=== PATIENT | male | born 1960 | race Caucasian/White ===

== ENCOUNTER 2019-02-12 19:40 | Inpatient (IN) | payer OTHER ==
--- NOTE | 2019-02-12 20:23 | ED ---
Altered Mental Status HPI - General Chief Complaint: Altered Mental Status Stated Complaint: Altered LOC Time Seen by Provider: 02/12/19 20:07 Source: patient, EMS, RN notes reviewed, old records reviewed Mode of arrival: EMS Limitations: no limitations - History of Present Illness Initial Comments: This is a 59-year-old male the ER for evaluation. states he feels well and is in no distress. Patient's brought the ED by PD as he was found without knowing where he was or how he got here. Patient was on his way from his family's house to the [facility] PD found in a playground unsure where he was. Patient's brought to ER for evaluation patient is awake alert currently dyspneic with patient's is gives him both history concern for his patient's cirrhosis and elevated ammonia MD Complaint: altered mental status, confusion -: unknown Severity: mild Consistency of Symptoms: unknown Context: history of similar presentation Associated Symptoms: weakness Treatments Prior to Arrival: glucose - Related Data Home Medications Medication Instructions Recorded Confirmed Calcium Carbonate/Vitamin D3 1 tab PO TID 02/12/19 02/12/19 [Calcium 500-Vit D3 200 Tablet] Cetirizine HCl [Zyrtec] 10 mg PO DAILY 02/12/19 02/12/19 Cholecalciferol [Vitamin D3 (25 1,000 unit PO DAILY 02/12/19 02/12/19 Mcg = 1000 Iu)] Fluticasone Nasal [place] [Flonase 2 spr EA NOSTRIL DAILY 02/12/19 02/12/19 Nasal [place]] Furosemide [Lasix] 80 mg PO DAILY 02/12/19 02/12/19 Magnesium Oxide 400 mg PO DAILY 02/12/19 02/12/19 Multivitamins, Thera [Multivitamin 1 tab PO DAILY 02/12/19 02/12/19 (formulary)] Omeprazole 20 mg PO DAILY 02/12/19 02/12/19 Primidone [Mysoline] 50 mg PO BID 02/12/19 02/12/19 Propranolol HCl 40 mg PO DAILY 02/12/19 02/12/19 Rifaximin [Xifaxan] 550 mg PO BID 02/12/19 02/12/19 SUMAtriptan SUCCINATE [Imitrex] 50 mg PO DAILY PRN 02/12/19 02/12/19 Saliva Stimulant Agents Comb.3 1 spray MUCOUS MEM DAILY 02/12/19 02/12/19 [Biotene Moisturizing Mouth] Spironolactone 50 mg PO DAILY 02/12/19 02/12/19 Tamsulosin HCl [Flomax] 0.4 mg PO HS 02/12/19 02/12/19 Allergies Allergy/AdvReac Type Severity Reaction Status Date / Time No Known Allergies Allergy Verified 02/12/19 19:58 Review of Systems ROS Statement: Those systems with pertinent positive or pertinent negative responses have been documented in the HPI. ROS Other: All systems not noted in ROS Statement are negative. Past Medical History Additional Past Medical History / Comment(s): chirrosis of the liver, hepatic encephalopathy, CIPD neuropathy IV treatments for, essential tremors, BPH Past Surgical History: No Surgical Hx Reported Past Psychological History: No Psychological Hx Reported Smoking Status: Never smoker Past Alcohol Use History: None Reported Past Drug Use History: None Reported General Exam Limitations: no limitations General appearance: alert, in no apparent distress Head exam: Present: atraumatic, normocephalic, normal inspection Eye exam: Present: normal appearance, PERRL, EOMI. Absent: scleral icterus, conjunctival injection, periorbital swelling ENT exam: Present: normal exam, mucous membranes dry Neck exam: Present: normal inspection. Absent: tenderness, meningismus, lymphadenopathy Respiratory exam: Present: normal lung sounds bilaterally. Absent: respiratory distress, wheezes, rales, rhonchi, stridor Cardiovascular Exam: Present: regular rate, normal rhythm, normal heart sounds. Absent: systolic murmur, diastolic murmur, rubs, gallop, clicks GI/Abdominal exam: Present: soft, normal bowel sounds. Absent: distended, tenderness, guarding, rebound, rigid Extremities exam: Present: normal inspection, full ROM, normal capillary refill. Absent: tenderness, pedal edema, joint swelling, calf tenderness Back exam: Present: normal inspection Neurological exam: Present: alert, oriented X3, CN II-XII intact Psychiatric exam: Present: normal affect, normal mood Skin exam: Present: warm, dry, intact, normal color. Absent: rash Course Vital Signs 02/12/19 19:49 Temperature 98.0 F Pulse Rate 58 L Respiratory 16 Rate Blood Pressure 123/61 O2 Sat by Pulse 98 Oximetry - Reevaluation(s) Reevaluation #1: 02/12/19 20:33 Medical records reviewed showing medical history The patient's who states patient does have cirrhosis and occasionally beco mes elevated ammonia and confused Reevaluation #2: 02/12/19 21:54 Spoke with family and they are aware of patient's admission - Consultations Consultation #1: Spoke with Dr. Schuler will admit for sounds Medical Decision Making - Medical Decision Making 59 male the ER with severe panic encephalopathy. Significant altered mental status, will admit for lactulose treatment and monitor mental status - Lab Data Result diagrams: 02/12/19 20:18 02/12/19 20:18 Lab Results 02/12/19 02/12/19 02/12/19 Range/Units 20:18 20:18 20:18 WBC 3.9 (3.8-10.6) k/uL RBC 3.12 L (4.30-5.90) m/uL Hgb 11.3 L (13.0-17.5) gm/dL Hct 33.8 L (39.0-53.0) % MCV 108.2 H (80.0-100.0) fL MCH 36.2 H (25.0-35.0) pg MCHC 33.5 (31.0-37.0) g/dL RDW 14.7 (11.5-15.5) % Macrocytosis Marked A Sodium 137 (137-145) mmol/L Potassium 4.2 (3.5-5.1) mmol/L Chloride 103 (98-107) mmol/L Carbon Dioxide 29 (22-30) mmol/L Anion Gap 5 mmol/L BUN 28 H (9-20) mg/dL Creatinine 0.87 (0.66-1.25) mg/dL Est GFR (CKD-EPI)AfAm >90 (>60 ml/min/1.73 sqM) Est GFR (CKD-EPI)NonAf >90 (>60 ml/min/1.73 sqM) Glucose 169 H (74-99) mg/dL Calcium 8.5 (8.4-10.2) mg/dL Phosphorus 3.2 (2.5-4.5) mg/dL Magnesium 1.9 (1.6-2.3) mg/dL Total Bilirubin 2.3 H (0.2-1.3) mg/dL AST 34 (17-59) U/L ALT 32 (21-72) U/L Alkaline Phosphatase 115 (38-126) U/L Ammonia 134 H (<30) umol/L Total Protein 6.0 L (6.3-8.2) g/dL Albumin 2.8 L (3.5-5.0) g/dL - EKG Data -: EKG Interpreted by Me (EKG shows a rhythm of 56, QRS 70, QTc 451) Disposition Clinical Impression: Altered mental status, Hepatic encephalopathy Disposition: ADMITTED IP TO THIS HOSP Condition: Fair Is patient prescribed a controlled substance at d/c from ED?: No Referrals: Nonstaff,Physician [Primary Care Provider] - 1-2 days
[2019-02-12] MEDS ORDERED: SODIUM CHLORIDE 0.9% 1,000 ML IV ONE ×2 (20:28→21:52)
[2019-02-12 21:04] LABS: Basophils % (A) 1 %; Eosinophils # (A) 0.2 k/uL (0-0.7); Eosinophils % (A) 4 %; HCT 33.8 % (39.0-53.0); HGB 11.3 gm/dL (13.0-17.5); Lymphocytes # (A) 0.8 k/uL (1.0-4.8); Lymphocytes % (A) 20 %; MCH 36.2 pg (25.0-35.0); MCHC 33.5 g/dL (31.0-37.0); MCV 108.2 fL (80.0-100.0); Macrocytosis Marked; Mean Platelet Volume 9.4; Monocytes # (A) 0.3 k/uL (0-1.0); Monocytes % (A) 7 %; Neutrophils # (A) 2.6 k/uL (1.3-7.7); Neutrophils % (A) 66 %; RBC 3.12 m/uL (4.30-5.90); RDW 14.7 % (11.5-15.5); WBC 3.9 k/uL (3.8-10.6)
[2019-02-12 21:13] LABS: ALT 32 U/L (21-72); AST 34 U/L (17-59); African American GFR (CKD) >90 (>60 ml/min/1.73 sqM); Albumin 2.8 g/dL (3.5-5.0); Alkaline Phosphatase 115 U/L (38-126); Anion Gap 5 mmol/L; Blood Urea Nitrogen 28 mg/dL (9-20); Calcium 8.5 mg/dL (8.4-10.2); Carbon Dioxide 29 mmol/L (22-30); Chloride 103 mmol/L (98-107); Glucose 169 mg/dL (74-99); Magnesium 1.9 mg/dL (1.6-2.3); Phosphorus 3.2 mg/dL (2.5-4.5); Potassium 4.2 mmol/L (3.5-5.1); Sodium 137 mmol/L (137-145); Total Bilirubin 2.3 mg/dL (0.2-1.3)
[2019-02-12] MEDS ORDERED: LACTULOSE 20 GM/30 ML CUP PO ONE (22:00)
[2019-02-12 22:14] LABS: Platelet Count 33 k/uL (150-450)
[2019-02-13] MEDS ORDERED: traZODone HCL 100 MG TAB ONE (03:35)
[2019-02-13] MEDS ORDERED: LACTULOSE 20 GM/30 ML CUP ONE ×2 (03:35)
--- NOTE | 2019-02-13 07:58 | P.HPIM ---
History of Present Illness H&P Date: 02/12/19 Chief Complaint: patient was found confused side of the road This 59-year-old male with history of CIDP and liver cirrhosis Patient was found by the police on the side of the road trying to start his car which is not running patient reports that he ran out of gas while trying to go to his doctor. Last thing he remembers is leaving in the morning to go to his doctor appointment the only problem is he lives in [place], and he has no idea how he got here in [place] he laughs when he tells the story as it had happened before to him where he finds himself in odd places with no recollection on how he got there. Police contacted his who reported him missing yesterday as he left home yesterday morning February 11, and wasnt found by the police until late in the evening of February 12 it seems like he drove all the way from [place] to [place]. Patient denies any physical complaints at this time denies any headache, focal neurologic deficits, chest pain or trouble breathing, abdominal pain nausea vomiting, changes in his urinary habits or bowel habits, or GI bleeding. In the ED he was found to have elevated ammonia of 1:30 he was given lactulose, and was admitted for further evaluation and care Review of Systems Pertinent positives as noted in HPI. 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 , essential tremors, BPH Past Surgical History: No Surgical Hx Reported Past Psychological History: No Psychological Hx Reported Smoking Status: Never smoker Past Alcohol Use History: None Reported Past Drug Use History: None Reported - Past Family History family Family Medical History: No Reported History Medications and Allergies Home Medications Medication Instructions Recorded Confirmed Type Calcium Carbonate/Vitamin D3 1 tab PO TID 02/12/19 02/12/19 History [Calcium 500-Vit D3 200 Tablet] Cetirizine HCl [Zyrtec] 10 mg PO DAILY 02/12/19 02/12/19 History Cholecalciferol [Vitamin D3 (25 1,000 unit PO DAILY 02/12/19 02/12/19 History Mcg = 1000 Iu)] Fluticasone Nasal [place] [Flonase 2 spr EA NOSTRIL DAILY 02/12/19 02/12/19 History Nasal [place]] Furosemide [Lasix] 80 mg PO DAILY 02/12/19 02/12/19 History Magnesium Oxide 400 mg PO DAILY 02/12/19 02/12/19 History Multivitamins, Thera [Multivitamin 1 tab PO DAILY 02/12/19 02/12/19 History (formulary)] Omeprazole 20 mg PO DAILY 02/12/19 02/12/19 History Primidone [Mysoline] 50 mg PO BID 02/12/19 02/12/19 History Propranolol HCl 40 mg PO DAILY 02/12/19 02/12/19 History Rifaximin [Xifaxan] 550 mg PO BID 02/12/19 02/12/19 History SUMAtriptan SUCCINATE [Imitrex] 50 mg PO DAILY PRN 02/12/19 02/12/19 History Saliva Stimulant Agents Comb.3 1 spray MUCOUS MEM DAILY 02/12/19 02/12/19 History [Biotene Moisturizing Mouth] Spironolactone 50 mg PO DAILY 02/12/19 02/12/19 History Tamsulosin HCl [Flomax] 0.4 mg PO HS 02/12/19 02/12/19 History Allergies Allergy/AdvReac Type Severity Reaction Status Date / Time No Known Allergies Allergy Verified 02/12/19 19:58 Physical Exam Vitals: Vital Signs Temp Pulse Pulse Resp BP BP Pulse Ox 02/12/19 22:59 98.0 F 60 18 123/70 97 02/12/19 22:27 89 16 120/74 97 02/12/19 19:49 98.0 F 58 L 16 123/61 98 Intake and Output 02/12/19 02/13/19 02/13/19 22:59 06:59 14:59 Other: Weight 77.111 kg Constitutional: No acute distress, conversant, pleasant, patient has positive asterixis Eyes: Hint of sclerae jaundice, moist conjunctiva, no lid-lag Pupils equal round reactive to light ENMT: NC/AT Oropharynx clear, no erythema, exudates Neck: Supple, FROM, no masses, or JVD No carotid bruits No thyromegaly Lungs: Clear to auscultation Clear to percussion Normal respiratory effort, no accessory muscle use Cardiovascular: Heart regular in rate and rhythm, No murmurs, gallops, or rubs No peripheral edema Abdominal: Soft Nontender, no guarding, rebound or rigidity Abdomen moving with respiration Normoactive bowel sounds No hepatomegaly, No splenomegaly No palpable mass No abdominal wall hernia noted Skin: Patient has a Mediport right anterior chest Normal temperature, tone, texture, turgor No induration No subcutaneous nodules No rash, lesions No ulcers Extremities: Patient has AV fistula over the distal left forearm No digital cyanosis No clubbing Pedal pulses intact and symmetrical Radial pulses intact and symmetrical No calf tenderness Psychiatric: Alert and oriented to person, place and time Appropriate affect fair judgment Neuro Muscles Strength 5/5 in all 4 extremities Sensation to light touch grossly present throughout Cranial nerves II-XII grossly intact No focal sensory deficits Lymphatics: no palpable cervical or supraclavicular , or inguinal lymph nodes Results CBC & Chem 7: 02/12/19 20:18 02/12/19 20:18 Labs: Abnormal Lab Results - Last 24 Hours (Table) 02/12/19 02/12/19 02/12/19 Range/Units 20:18 20:18 20:18 RBC 3.12 L (4.30-5.90) m/uL Hgb 11.3 L (13.0-17.5) gm/dL Hct 33.8 L (39.0-53.0) % MCV 108.2 H (80.0-100.0) fL MCH 36.2 H (25.0-35.0) pg Plt Count 33 L (150-450) k/uL Lymphocytes # 0.8 L (1.0-4.8) k/uL Macrocytosis Marked A BUN 28 H (9-20) mg/dL Glucose 169 H (74-99) mg/dL Total Bilirubin 2.3 H (0.2-1.3) mg/dL Ammonia 134 H (<30) umol/L Total Protein 6.0 L (6.3-8.2) g/dL Albumin 2.8 L (3.5-5.0) g/dL Assessment and Plan Assessment: 59-year-old male with history of liver cirrhosis, CIDP, BPH, hypertension Patient admitted to the hospital for acute metabolic encephalopathy found to have elevated ammonia. Admitted as an inpatient with anticipated length of stay more than 2 midnights. Patient has gone missing since yesterday from home where he lives in [place], police [place] [address] [place] when patient asked he has no clue about how he got here however he reports that he has in the past found himself and on places multiple times without having any recollection on how he got there Plan: Acute hepatic encephalopathy with hyperammonemia secondary to liver cirrhosis Lactulose every 2 hours until patient passes a bowel movement then will be titrated to target 3-5 bowel movements Neurochecks Fall precautions resume home meds rifaximine , and propranolol ,aldactone and lasix Chronic conditions Chronic inflammatory demyelinating polyneuropathy, continue outpatient follow-up with plasmapheresis monthly Hypertension currently controlled resume home meds Hyperlipidemia BPH DVT prophylaxis mechanical due to thrombocytopenia thrombocytopenia, 2/2 chronic liver cirhosis anemia with macrocytosis Surrogate decision-maker: Patient CODE STATUS full code Discussed with: Patient, ER, RN Anticipated length of stay more than [address]: Pending clinical course A total of 60 minutes was spent on the care of this complex patient more than 50% of the time was spent in counseling and care coordination.
[2019-02-13] MEDS ORDERED: DRY MOUTH SPRAY 44.3 SPRAY/44.3 ML SPRAY MUCOUS MEM PRN (08:00)
[2019-02-13] MEDS: FLUTICASONE 50MCG/SPRAY NASAL 16GM EA NOSTRIL SCH (08:58)
[2019-02-13] MEDS: PROPRANOLOL 40 MG TAB PO SCH (08:59)
[2019-02-13] MEDS: LORATADINE 10 MG TAB PO SCH (08:59)
[2019-02-13] MEDS: SPIRONOLACTONE 25 MG TAB PO SCH (08:59)
[2019-02-13] MEDS: RIFAXIMIN 550 MG TABLET PO SCH ×2 (08:59→21:49)
[2019-02-13] MEDS: FUROSEMIDE 80 MG TAB PO SCH (08:59)
[2019-02-13] MEDS: MAGNESIUM OXIDE 400 MG TAB PO SCH (08:59)
[2019-02-13] MEDS ORDERED: ENOXAPARIN 40 MG/0.4 ML SYRINGE SQ SCH (09:00)
[2019-02-13] MEDS: LACTULOSE 20 GM/30 ML CUP PO SCH ×2 (09:03→21:48)
[2019-02-13 12:51] LABS: Basophils % (A) 0 %; Eosinophils # (A) 0.1 k/uL (0-0.7); Eosinophils % (A) 4 %; HCT 32.9 % (39.0-53.0); Lymphocytes # (A) 0.5 k/uL (1.0-4.8); Lymphocytes % (A) 17 %; MCH 37.4 pg (25.0-35.0); MCHC 33.5 g/dL (31.0-37.0); MCV 111.5 fL (80.0-100.0); Macrocytosis Marked; Mean Platelet Volume 10.1; Monocytes # (A) 0.3 k/uL (0-1.0); Monocytes % (A) 8 %; Neutrophils # (A) 2.2 k/uL (1.3-7.7); Neutrophils % (A) 68 %; RBC 2.95 m/uL (4.30-5.90); RDW 14.7 % (11.5-15.5); WBC 3.2 k/uL (3.8-10.6)
--- NOTE | 2019-02-13 12:51 | P.PN ---
Subjective Progress Note Date: 02/13/19 Principal diagnosis: Hepatic encephalopathy Patient was seen and examined. No acute events overnight. Patient reports that he was confused, was attempting to drive to his [facility] appointment when he continued driving from [place] to [place]. Patient states that his is on her way to come get him. He denies any chest pain, shortness of breath or palpitations. No nausea or vomiting. No fever or chills. Had multiple bowel movements from the lactulose. Objective - Vital Signs Vital signs: Vital Signs Temp 98.6 F 02/13/19 07:00 Pulse 65 02/13/19 07:00 Resp 16 02/13/19 07:00 BP 113/64 02/13/19 07:00 Pulse Ox 98 02/13/19 07:00 Intake & Output 02/12/19 02/13/19 02/13/19 18:59 06:59 18:59 Intake Total 650 Balance 650 Weight 77.111 kg Intake: Oral 650 Other: Voiding Method Toilet # Voids 1 # Bowel Movements 1 2 - Exam General: [non toxic], [no distress], [appears at stated age] Derm: [warm], [dry] Head: [atraumatic], [normocephalic], [symmetric] Eyes: [EOMI], [no lid lag], [anicteric sclera] Mouth: [no lip lesion], [mucus membranes moist] Cardiovascular: [S1S2 reg], [no murmur], [positive posterior tibial pulse bilateral], [right-sided chest port] Lungs: [CTA bilateral], [no rhonchi, no rales] , [no accessory muscle use] Abdominal: [soft, slightly distended], [ nontender to palpation], [no guarding], [no appreciable organomegaly] Ext: [no gross muscle atrophy], [no edema], [no contractures], [ asterixis ], [chronic venous stasis changes bilateral lower extremities] Neuro: [no focal neuro deficits] Psych: [Able to remember his home address, current president, today's date] - Labs CBC & Chem 7: 02/12/19 20:18 02/12/19 20:18 Labs: Abnormal Lab Results - Last 24 Hours (Table) 10/15/19 10/15/19 10/15/19 Range/Units 20:18 20:18 20:18 RBC 3.12 L (4.30-5.90) m/uL Hgb 11.3 L (13.0-17.5) gm/dL Hct 33.8 L (39.0-53.0) % MCV 108.2 H (80.0-100.0) fL MCH 36.2 H (25.0-35.0) pg Plt Count 33 L (150-450) k/uL Lymphocytes # 0.8 L (1.0-4.8) k/uL Macrocytosis Marked A BUN 28 H (9-20) mg/dL Glucose 169 H (74-99) mg/dL Total Bilirubin 2.3 H (0.2-1.3) mg/dL Ammonia 134 H (<30) umol/L Total Protein 6.0 L (6.3-8.2) g/dL Albumin 2.8 L (3.5-5.0) g/dL Assessment and Plan Assessment: Assessment and Plan Acute hepatic encephalopathy with hyperammonemia secondary to liver cirrhosis Macrocytic anemia Thrombocytopenia Elevated BUN Hyperglycemia Chronic conditions: CIPD on monthly plasmapheresis, BPH Ammonia 134. States cirrhosis was from untreated hep C. Plans: Continue lactulose 30 g by mouth twice a day. Continue propranolol. Continue rifaximin. Fall precautions. Follow repeat ammonia level around 12 PM. Follow GI recommendations. Hemoglobin 11.3 with MCV 108.2. Likely due to cirrhosis. Plans: Follow B12 and folic acid. Daily CBC. Platelet count 33. Likely due to cirrhosis. Plans: Avoid heparin products. No acute signs of bleeding. Daily CBC. BUN 28, creatinine within normal limits. Likely due to dehydration. Plans: Encourage hydration by mouth. Repeat BMP in the morning. Blood glucose 169 without history of diabetes. Plans: Regular Accu-Cheks. Follow A1c. [Patient admitted for hepatic encephalopathy. Repeat ammonia level pending. Patient mentation is improving. We'll need to discuss further with family. Likely DC in 1-2 days.]
[2019-02-13 12:56] LABS: ALT 35 U/L (21-72); AST 37 U/L (17-59); African American GFR (CKD) >90 (>60 ml/min/1.73 sqM); Albumin 2.6 g/dL (3.5-5.0); Alkaline Phosphatase 112 U/L (38-126); Anion Gap 6 mmol/L; Blood Urea Nitrogen 22 mg/dL (9-20); Calcium 8.2 mg/dL (8.4-10.2); Carbon Dioxide 25 mmol/L (22-30); Chloride 108 mmol/L (98-107); Glucose 103 mg/dL (74-99); Magnesium 1.9 mg/dL (1.6-2.3); Potassium 4.5 mmol/L (3.5-5.1); Sodium 139 mmol/L (137-145); Total Bilirubin 1.7 mg/dL (0.2-1.3); Total Protein 5.6 g/dL (6.3-8.2)
[2019-02-13 13:00] LABS: Platelet Count 26 k/uL (150-450)
[2019-02-13] MEDS: PANTOPRAZOLE 40 MG TABLET PO SCH (13:39)
--- NOTE | 2019-02-13 15:28 | XR ---
EXAMINATION TYPE: XR chest 1V portable DATE OF EXAM: 02/13/2019 COMPARISON: None INDICATION: Chest port placement TECHNIQUE: Single frontal view of the chest is obtained. FINDINGS: The heart size is normal. The pulmonary vasculature is normal. The lungs are clear. There is elevation of the right diaphragm. Port is present on the right with the tip in the right atr ium. No pneumothorax is evident. IMPRESSION: 1. No acute pulmonary process.
[2019-02-13 17:01] LABS: Glucose,Whole Blood 133 mg/dL (75-99)
--- NOTE | 2019-02-13 18:41 | CONS ---
CONSULTATION DATE OF SERVICE: February 13, 2019. REQUESTING PHYSICIAN: Dr. Jones. REASON FOR CONSULTATION: Hepatic encephalopathy. HISTORY OF PRESENT ILLNESS: The patient is a 59-year-old pleasant white male with known history of liver cirrhosis diagnosed 10 years ago. He was also diagnosed with chronic hepatitis C infection that he has acquired from plasma transfusions in the past. He lives in [place] and apparently he became somewhat confused and continued [place] drive [place] [address], and ended up in the [place]. Apparently, he was seen by the police as he was trying to start his car as he ran out of gas and he was subsequently brought to the emergency room because of severe confusion. He was noted to have elevated ammonia level at the time of admission the hospital. The patient is doing much better now. His confusion has completely resolved. He states that he has periodic episodes of hepatic encephalopathy that lasts for 3-4 hours and usually subsides. He has been maintained on oral lactulose 30 mL twice daily and usually has 3-4 bowel movements daily. He also has been maintained on Xifaxan 1 tablet b.i.d. His liver disease has been fairly well compensated. He also has a history of CIDP. He is on monthly IVIG infusions. Prior to that, he was on plasmapheresis on a frequent basis. PAST MEDICAL HISTORY: 1. Significant for cirrhosis of the liver related to chronic hepatitis C infection status post antiviral therapy about 3-4 years ago and it worked and he has compensated liver disease. 2. History of hepatic encephalopathy with periodic episodes requiring hospitalization. 3. CIPD on IVIG infusions. PAST SURGICAL HISTORY: Fistula in the left upper arm. MEDICATIONS: At home include Prilosec, Mysoline, Propanol, Xifaxan, Imitrex, spironolactone, Flomax, omeprazole, Lasix, magnesium oxide, Flonase, vitamin D3, Zyrtec, and calcium carbonate. SOCIAL HISTORY: No smoking. No alcohol use. FAMILY HISTORY: Unremarkable. REVIEW OF SYSTEMS: Cardiopulmonary: Denies any chest pain, shortness of breath. Genitourinary: No dysuria or hematuria. Musculoskeletal unremarkable. Skin unremarkable. Endocrine unremarkable. Psychiatric unremarkable. Neurology unremarkable. ENT/vision unremarkable. CONSTITUTIONAL: No recent weight loss. No fever, chills, night sweats. PHYSICAL EXAMINATION: He appears comfortable. No apparent distress. VITAL SIGNS: Stable. Blood pressure 123/70, pulse rate 60, temperature 97.7. HEENT examination unremarkable. Conjunctivae pink. Sclerae anicteric. Oral cavity no lesions. The chest was clear to auscultation. HEART: Regular rate and rhythm. ABDOMEN: Soft. Bowel sounds are positive. No organomegaly. EXTREMITIES: No pedal edema. Skin no rashes. NEUROLOGIC: Alert and oriented x3. No focal deficits. LABS: From yesterday: WBC 3.9, hemoglobin 11.3, platelets 33,000. Today, WBC 3.2, hemoglobin 11, and platelets 26,000. BUN and creatinine are within normal limits. AST and ALT 34 and 32 respectively. T bilirubin 2.3 and alkaline phosphatase 134. Ammonia level was 134 yesterday, it is 107 today. IMPRESSION: 1. Hepatic encephalopathy with elevated ammonia level in this patient who has known liver cirrhosis diagnosed 10 years ago, presently on oral lactulose as well as oral Xifaxan and the ammonia levels are gradually improving. His mentation has completely normalized. 2. History of liver cirrhosis diagnosed 10 years ago. This was related to chronic hepatitis C infection that he has had plasma transfusions in the past. He was treated with oral antibiotic therapy in [place] about 3-4 years ago. 3. Mild elevation of bilirubin at 2.3, but normal serum transaminases. 4. History of CIDP on IVIG every 4 weeks. Prior to that he received plasmapheresis every 3 weeks. RECOMMENDATIONS: 1. Continue with lactulose and Xifaxan. 2. Try to so that he has 3-4 soft bowel movements daily. 3. Repeat ammonia levels in the morning. 4. If the ammonia levels are within normal limits, he can be discharged home. Thank you for this consultation. MMODL / IJN: [id number] /
[2019-02-13] MEDS ORDERED: traZODone HCL 100 MG TAB PO PRN (19:16)
[2019-02-13 20:40] LABS: Glucose,Whole Blood 123 mg/dL (75-99)
[2019-02-13] MEDS ORDERED: TAMSULOSIN 0.4 MG CAP.ER.24H PO SCH (21:00)
[2019-02-14 07:58] VITALS: BP 117/74; PULSE 65; RESP 16; TEMP 98.1
[2019-02-14] MEDS: SPIRONOLACTONE 25 MG TAB PO SCH (08:26)
[2019-02-14] MEDS: LACTULOSE 20 GM/30 ML CUP PO SCH (08:26)
[2019-02-14] MEDS: FLUTICASONE 50MCG/SPRAY NASAL 16GM EA NOSTRIL SCH (08:26)
[2019-02-14] MEDS: RIFAXIMIN 550 MG TABLET PO SCH (08:26)
[2019-02-14] MEDS: PROPRANOLOL 40 MG TAB PO SCH (08:26)
[2019-02-14] MEDS: PANTOPRAZOLE 40 MG TABLET PO SCH (08:26)
[2019-02-14] MEDS: FUROSEMIDE 80 MG TAB PO SCH (08:26)
[2019-02-14] MEDS: MAGNESIUM OXIDE 400 MG TAB PO SCH (08:26)
[2019-02-14] MEDS: LORATADINE 10 MG TAB PO SCH (08:26)
[2019-02-14 08:27] LABS: HCT 33.8 % (39.0-53.0); HGB 11.1 gm/dL (13.0-17.5); MCH 37.2 pg (25.0-35.0); MCHC 32.8 g/dL (31.0-37.0); MCV 113.4 fL (80.0-100.0); Macrocytosis Marked; Mean Platelet Volume 11.3; RBC 2.98 m/uL (4.30-5.90); RDW 14.9 % (11.5-15.5); WBC 3.5 k/uL (3.8-10.6)
[2019-02-14 08:30] LABS: Platelet Count 26 k/uL (150-450)
[2019-02-14 08:37] LABS: ALT 37 U/L (21-72); AST 41 U/L (17-59); African American GFR (CKD) >90 (>60 ml/min/1.73 sqM); Albumin 2.7 g/dL (3.5-5.0); Alkaline Phosphatase 116 U/L (38-126); Anion Gap 8 mmol/L; Blood Urea Nitrogen 23 mg/dL (9-20); Calcium 7.8 mg/dL (8.4-10.2); Carbon Dioxide 22 mmol/L (22-30); Chloride 109 mmol/L (98-107); Glucose 170 mg/dL (74-99); Potassium 4.5 mmol/L (3.5-5.1); Sodium 139 mmol/L (137-145); Total Bilirubin 2.4 mg/dL (0.2-1.3); Total Protein 5.8 g/dL (6.3-8.2)
--- NOTE | 2019-02-14 10:45 | P.PN ---
Subjective Progress Note Date: 02/14/19 Principal diagnosis: Hepatic encephalopathy Patient was seen and examined. No acute events overnight. is at bedside states that he is still confused but comfortable taking him home. He denies any chest pain, shortness of breath or palpitations. No nausea or vomiting. No fever or chills. Had multiple bowel movements from the lactulose. Ammonia level 87 this morning. Objective - Vital Signs Vital signs: Vital Signs Temp 98.1 F 02/14/19 07:00 Pulse 65 02/14/19 07:00 Resp 16 02/14/19 07:00 BP 117/74 02/14/19 07:00 Pulse Ox 97 02/14/19 07:00 Intake & Output 02/13/19 02/14/19 02/14/19 18:59 06:59 18:59 Intake Total 650 Balance 650 Intake: Oral 650 Other: Voiding Method Toilet # Voids 2 1 # Bowel Movements 2 - Exam General: [non toxic], [no distress], [appears at stated age] Derm: [warm], [dry] Head: [atraumatic], [normocephalic], [symmetric] Eyes: [EOMI], [no lid lag], [anicteric sclera] Mouth: [no lip lesion], [mucus membranes moist] Cardiovascular: [S1S2 reg], [no murmur], [positive posterior tibial pulse bilateral], [right-sided chest port] Lungs: [CTA bilateral], [no rhonchi, no rales] , [no accessory muscle use] Abdominal: [soft, slightly distended], [ nontender to palpation], [no guarding], [no appreciable organomegaly] Ext: [no gross muscle atrophy], [no edema], [no contractures], [ asterixis ], [chronic venous stasis changes bilateral lower extremities] Neuro: [no focal neuro deficits] Psych: [Able to remember his home address and today's date] - Labs CBC & Chem 7: 02/14/19 08:04 02/14/19 08:04 Labs: Abnormal Lab Results - Last 24 Hours (Table) 02/13/19 02/13/19 02/13/19 Range/Units 12:03 12:03 12:03 WBC 3.2 L (3.8-10.6) k/uL RBC 2.95 L (4.30-5.90) m/uL Hgb 11.0 L (13.0-17.5) gm/dL Hct 32.9 L (39.0-53.0) % MCV 111.5 H (80.0-100.0) fL MCH 37.4 H (25.0-35.0) pg Plt Count 26 L (150-450) k/uL Lymphocytes # 0.5 L (1.0-4.8) k/uL Macrocytosis Marked A Chloride 108 H (98-107) mmol/L BUN 22 H (9-20) mg/dL Glucose 103 H (74-99) mg/dL POC Glucose (mg/dL) (75-99) mg/dL Calcium 8.2 L (8.4-10.2) mg/dL Total Bilirubin 1.7 H (0.2-1.3) mg/dL Ammonia 107 H (<30) umol/L Total Protein 5.6 L (6.3-8.2) g/dL Albumin 2.6 L (3.5-5.0) g/dL 02/13/19 02/13/19 02/14/19 Range/Units 16:50 20:28 08:04 WBC 3.5 L (3.8-10.6) k/uL RBC 2.98 L (4.30-5.90) m/uL Hgb 11.1 L (13.0-17.5) gm/dL Hct 33.8 L (39.0-53.0) % MCV 113.4 H (80.0-100.0) fL MCH 37.2 H (25.0-35.0) pg Plt Count 26 L (150-450) k/uL Lymphocytes # (1.0-4.8) k/uL Macrocytosis Marked A Chloride (98-107) mmol/L BUN (9-20) mg/dL Glucose (74-99) mg/dL POC Glucose (mg/dL) 133 H 123 H (75-99) mg/dL Calcium (8.4-10.2) mg/dL Total Bilirubin (0.2-1.3) mg/dL Ammonia (<30) umol/L Total Protein (6.3-8.2) g/dL Albumin (3.5-5.0) g/dL 02/14/19 02/14/19 Range/Units 08:04 08:04 WBC (3.8-10.6) k/uL RBC (4.30-5.90) m/uL Hgb (13.0-17.5) gm/dL Hct (39.0-53.0) % MCV (80.0-100.0) fL MCH (25.0-35.0) pg Plt Count (150-450) k/uL Lymphocytes # (1.0-4.8) k/uL Macrocytosis Chloride 109 H (98-107) mmol/L BUN 23 H (9-20) mg/dL Glucose 170 H (74-99) mg/dL POC Glucose (mg/dL) (75-99) mg/dL Calcium 7.8 L (8.4-10.2) mg/dL Total Bilirubin 2.4 H (0.2-1.3) mg/dL Ammonia 87 H (<30) umol/L Total Protein 5.8 L (6.3-8.2) g/dL Albumin 2.7 L (3.5-5.0) g/dL Assessment and Plan Assessment: Assessment and Plan Acute hepatic encephalopathy with hyperammonemia secondary to liver cirrhosis Macrocytic anemia Thrombocytopenia Elevated BUN Hyperglycemia Chronic conditions: 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 States cirrhosis was from untreated hep C. Plans: Continue lactulose 30 g by mouth twice a day. Continue propranolol. Continue rifaximin. Fall precautions. Follow GI recommendations. Hemoglobin 11.3-11.1 with MCV 108.2-113.4. Likely due to cirrhosis. Plans: Follow B12 and folic acid. Daily CBC. Platelet count 33-26. Likely due to cirrhosis. Plans: Avoid heparin products. No acute signs of bleeding. Daily CBC. BUN 28-23, creatinine within normal limits. Likely due to dehydration. Plans: Encourage hydration by mouth. Repeat BMP in the morning. Blood glucose 170 without history of diabetes. Plans: Regular Accu-Cheks. Follow A1c. [We'll discuss with GI regarding discharge planning. Would benefit from additional days ammonia level continues to rate markedly elevated. DC in 1- 2 days.]
[2019-02-14 16:49] LABS: Hemoglobin A1C 4.3 % (4.0-6.0)
--- NOTE | 2019-02-14 17:40 | PN ---
PROGRESS NOTE DATE OF DICTATION: February 14, 2019 Patient is a 59-year-old pleasant white male who was admitted to the hospital with hepatic encephalopathy, history of chronic hepatitis C infection with cirrhosis of the liver diagnosed 8 years ago. He was treated with antiviral therapy for chronic hepatitis C infection in [place] and doing well. The patient was extremely confused at the time of admission to the hospital with elevated ammonia levels. He has been on lactulose and Xifaxan and he is doing much better. His last ammonia level was 87. PHYSICAL EXAMINATION: He appears comfortable. No apparent distress. VITAL SIGNS: Stable. Blood pressure 117/74, pulse rate 65, temperature 98.1. HEENT examination: Unremarkable. Conjunctivae pink. Sclerae anicteric. Oral cavity no lesions. NECK: No JVD or lymph node enlargement. CHEST: Clear to auscultation. HEART: Regular rate and rhythm. ABDOMEN: Soft, nontender, nondistended. Bowel sounds are positive. No organomegaly. EXTREMITIES: No pedal edema. SKIN no rashes. NEUROLOGIC: Alert and oriented x3. No focal deficits. LABS: Done today WBC 3.5, hemoglobin 11.1, platelets 26,000. Ammonia level is 87. ALT, AST, T-bilirubin and alkaline phosphatase normal except for T-bilirubin 2.4. IMPRESSION: 1. Cirrhosis of the liver related to chronic hepatitis C infection diagnosed 10 years ago. 2. Chronic hepatitis C infection status post antiviral therapy 4 years ago and achieved a response. 3. Hepatic encephalopathy with severe confusion, which has resolved. Ammonia level has significantly improved to 87. Mentation is back to normal. Presently on Xifaxan and lactulose, doing well. He had 4 bowel movements this morning already. 4. Pancytopenia related to portal hypertension/hypersplenism from underlying liver disease. RECOMMENDATIONS: 1. Continue with oral lactulose 30 mL 3-4 times daily and titrate so that he has 3-4 bowel movements daily. 2. Continue Xifaxan 550 mg twice daily. 3. 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 Thank you for this consultation. MMODL / IJN: [id number] /
--- NOTE | 2019-02-17 07:08 | P.DS ---
Providers Date of admission: 02/12/19 21:54 Expected date of discharge: 02/14/19 Attending physician: Ceci Jones MD Consults: 02/13/19 07:58 Consult Physician Routine Consulting Provider: Serg Hodge Consult Reason/Comments: hyperammonemia, hepatic encephalopathy Do you want consulting provider notified?: Yes Primary care physician: Physician Nonstaff Hospital Course: This 59-year-old male with history of CIDP and liver cirrhosis Patient was found by the police on the side of the road trying to start his car which is not running patient reports that he ran out of gas while trying to go to his doctor. Last thing he remembers is leaving in the morning to go to his doctor appointment the only problem is he lives in [place], and he has no idea how he got here in [place] he laughs when he tells the story as it had happened before to him where he finds himself in odd places with no recollection on how he got there. Police contacted his who reported him missing yesterday as he left home yesterday morning February 11, and wasnt found by the police until late in the evening of February 12 it seems like he drove all the way from [place] to [place]. Patient denies any physical complaints at this time denies any headache, focal neurologic deficits, chest pain or trouble breathing, abdominal pain nausea vomiting, changes in his urinary habits or bowel habits, or GI bleeding. In the ED he was found to have elevated ammonia of 1:30 he was given lactulose, and was admitted for further evaluation and care. His ammonia trended down from 134-87. His cirrhosis was likely secondary to untreated hepatitis C. He was continued on lactulose 30 g by mouth twice a day. His home medications of propranolol and rifaximin were continued. GI was consulted and recommended conservative management of this patient. His showed up from [place] and patient was cleared from a GI perspective. 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 Assessment Acute hepatic encephalopathy with hyperammonemia secondary to liver cirrhosis Macrocytic anemia Thrombocytopenia Elevated BUN Hyperglycemia Pertinent Studies: Chest x-ray Patient Condition at Discharge: Fair Plan - Discharge Summary New Discharge Prescriptions: New Lactulose [Cephulac] 30 gm PO BID #420 ml Continue Spironolactone 50 mg PO DAILY SUMAtriptan SUCCINATE [Imitrex] 50 mg PO DAILY PRN PRN Reason: Migraine Headache Rifaximin [Xifaxan] 550 mg PO BID Propranolol HCl 40 mg PO DAILY Primidone [Mysoline] 50 mg PO BID Omeprazole 20 mg PO DAILY Multivitamins, Thera [Multivitamin (formulary)] 1 tab PO DAILY Magnesium Oxide 400 mg PO DAILY Saliva Stimulant Agents Comb.3 [Biotene Moisturizing Mouth] 1 spray MUCOUS MEM DAILY Furosemide [Lasix] 80 mg PO DAILY Fluticasone Nasal [place] [Flonase Nasal [place]] 2 spr EA NOSTRIL DAILY Cholecalciferol [Vitamin D3 (25 Mcg = 1000 Iu)] 1,000 unit PO DAILY Cetirizine HCl [Zyrtec] 10 mg PO DAILY Calcium Carbonate/Vitamin D3 [Calcium 500-Vit D3 200 Tablet] 1 tab PO TID Tamsulosin HCl [Flomax] 0.4 mg PO HS Discharge Medication List Calcium Carbonate/Vitamin D3 [Calcium 500-Vit D3 200 Tablet] 1 tab PO TID 02/12/19 [History] Cetirizine HCl [Zyrtec] 10 mg PO DAILY 02/12/19 [History] Cholecalciferol [Vitamin D3 (25 Mcg = 1000 Iu)] 1,000 unit PO DAILY 02/12/19 [History] Fluticasone Nasal [place] [Flonase Nasal [place]] 2 spr EA NOSTRIL DAILY 02/12/19 [History] Furosemide [Lasix] 80 mg PO DAILY 02/12/19 [History] Magnesium Oxide 400 mg PO DAILY 02/12/19 [History] Multivitamins, Thera [Multivitamin (formulary)] 1 tab PO DAILY 02/12/19 [History] Omeprazole 20 mg PO DAILY 02/12/19 [History] Primidone [Mysoline] 50 mg PO BID 02/12/19 [History] Propranolol HCl 40 mg PO DAILY 02/12/19 [History] Rifaximin [Xifaxan] 550 mg PO BID 02/12/19 [History] SUMAtriptan SUCCINATE [Imitrex] 50 mg PO DAILY PRN 02/12/19 [History] Saliva Stimulant Agents Comb.3 [Biotene Moisturizing Mouth] 1 spray MUCOUS MEM DAILY 02/12/19 [History] Spironolactone 50 mg PO DAILY 02/12/19 [History] Tamsulosin HCl [Flomax] 0.4 mg PO HS 02/12/19 [History] Lactulose [Cephulac] 30 gm PO BID #420 ml 02/14/19 [Rx] Follow up Appointment(s)/Referral(s): Saima Mason MD [STAFF PHYSICIAN] - 02/20/19 4:15 pm Nonstaff,Physician [Primary Care Provider] - 1-2 days Patient Instructions/Handouts: Hepatic Encephalopathy (DC) Activity/Diet/Wound Care/Special Instructions: Please follow-up with your primary care provider within 3 days of discharge. Please follow-up with your overhauler bus truck within 1 week of discharge. Your given lactulose to take 30 g twice a day for the next 7 days. He will need to follow-up with your PCP to obtain a repeat ammonia level. Discharge Disposition: HOME SELF-CARE
== END 2019-02-14 15:14 | disposition home or self-care (01) | DRG 442 ==
LOC: EC 19:40 → 4MS4W 21:54 → 4SSUR 22:28
PROVIDERS: ADMIT Internal Medicine; ATTEND Internal Medicine
DX: K72.00 Acute and subacute hepatic failure without coma (principal); G61.81 Chronic inflammatory demyelinating polyneuritis; K76.6 Portal hypertension; D61.818 Other pancytopenia; G25.0 Essential tremor; E78.5 Hyperlipidemia, unspecified; K74.60 Unspecified cirrhosis of liver; D53.9 Nutritional anemia, unspecified; B18.2 Chronic viral hepatitis C; D69.59 Other secondary thrombocytopenia; D73.1 Hypersplenism; E86.0 Dehydration; I10 Essential (primary) hypertension; N40.0 Benign prostatic hyperplasia without lower urinary tract symptoms; R73.9 Hyperglycemia, unspecified; Z79.899 Other long term (current) drug therapy
CPT/HCPCS: 36415; 71045; 80053; 82140; 82607; 82746; 83036; 83735; 84100; 85025; 85027; 96360; 96361; 99285